=== PATIENT | male | born 1960 | race Caucasian/White ===

== ENCOUNTER 2025-10-11 23:18 | Emergency (ER) | payer BC, MEDICAID ==
[~2025-10-11] VITALS: Ht 188 cm; Wt 180.0 kg
[~2025-10-11 23:18] MED LIST: APIX5TAB3 PO; ATOR40TA PO; CARV-166 PO; DULO60CA65 PO; HYDR25TA90 PO; SACC250C PO; SERT25TA PO; TAMS-55 PO
[2025-10-11 23:49] LABS: MEAN PLATELET VOLUME 7.7 FL (7.4-10.4); RED CELL DISTRIBUTION WIDTH 17.9 % (11.5-14.5)
[2025-10-12 00:03] LABS: CREATININE 0.97 MG/DL (0.60-1.10); TOTAL CARBON DIOXIDE 28.5 MMOL/L (24-32); eCRCL 87 ML/MIN; eGFR 77 ML/MIN
[2025-10-12] MEDS ORDERED: LOSA50TA64 PO (00:15)
[2025-10-12] MEDS ORDERED: CARV6.2553 PO (00:17)
[2025-10-12] MEDS ORDERED: FURO40TA4 PO (00:17)
--- NOTE | 2025-10-12 00:40 | Physician Documentation ---
History of Present Illness ~ Chief Complaint: Urinary Symptoms Stated Complaint: DIFFICULTY URINATING M ALS Time Seen by MD: 00:30 OK to notify your PCP?: Yes Primary Medical Doctor: Em Sotelo MD Source: patient Mode of Arrival: EMS Exam Limitations: no limitations HPI 65 year old male presenting to the ED from home due to urinary symptoms. Patient states that he is supposed to be wearing a hess "but doesn't like it". Complaints of urinary urgency after voiding in the ED. + dysuria. Patient denies fevers/chills. Patient denies any other associated symptoms. Patient denies any other alleviating or exacerbating factors at this time. Medication Reconciliation Allergies: Coded Allergies: No Known Allergies (Unverified , 10/11/25) Scheduled Apixaban (Eliquis), 1 TAB PO Q12H, (Reported) Atorvastatin Calcium* (Lipitor*), 1 TAB PO DAILY, (Reported) Cephalexin*Monohydrate* (Keflex*), 1 CAP PO Q12H Duloxetine HCl (Duloxetine HCl), 1 CAP PO Q12H, (Reported) Furosemide (Furosemide), 1 TAB PO DAILY, (Reported) Losartan Potassium (Losartan Potassium), 1 TAB PO DAILY, (Reported) Sertraline Hcl* (Zoloft*), 2 TAB PO DAILY, (Reported) Tamsulosin Hcl* (Flomax*), 1 CAP PO DAILY, (Reported) Miscellaneous Medications Carvedilol (Carvedilol), 1 TAB PO, (Reported) Past Medical History Patient History: FH: diabetes mellitus FATHER, , Cause: Myocardial infarction MOTHER, , Age: 60 years and older FH: heart disease FATHER, , Cause: Myocardial infarction MOTHER, , Age: 60 years and older Alcohol Use: Other Drug Use: none Lives with: Spouse Lives In: Home Occupation: retired Review of Systems All Other Systems at this time: Reviewed and Negative ROS As stated above in the HPI, otherwise all systems are reviewed and negative. Physical Exam Vital Signs: RN Vital Signs have been reviewed: Yes, Temperature: 98.2, Source: Oral, Heart Rate: 59, Respiratory Rate: 16, BP: 172/136, Pulse Oximetry: 95, Weight: 180.000 Oxygen Flow Rate: 0 Pulse Oximetry Reflects: adequate oxygenation Physical Exam General: Patient is awake, alert, oriented x4 in no acute distress. Morbidly obese. Head: Normocephalic and atraumatic. Eyes: Conjunctival normal. EOMI. PERRL. ENT: Mucous membranes moist. Neck: Supple, trachea is midline. Chest: Clear to auscultation bilaterally without rales, rhonchi, or wheezes. There is no accessory muscle use or retractions. Cardiac: Bradycardic, without murmurs, gallops, or rubs. Abd: Soft, nondistended, nontender, with normoactive bowel sounds. No guarding, rebound, or rigidity. Extremities: Normal strength. Normal range of motion. No deformities or edema. Back: No midline spinal or CVA tenderness. Skin: Warm and dry with no significant rash appreciated. Neuro: Cranial nerves II-XII grossly intact. No focal neuro deficits. Progress Results/Orders Results/Orders Orders - EHMA ZALDIVAR MD Straight Cath For Urine Sample (10/11/25 23:27) Culture Blood (10/11/25 23:27) Cult Urine + [facility] (10/12/25 01:52) Production Support Developer (10/12/25 06:20) Cult Urine + [facility] [address] (10/12/25 06:23) Completed Orders - HEMA ZALDIVAR MD Cbc/Diff (10/11/25 23:27) CMP (10/11/25 23:27) Procalcitonin (10/11/25 23:27) Lacticsepsis (10/11/25 23:27) Acetaminophen 325mg Tablet (Tylenol Tabl (10/12/25 00:45) Ondansetron Disint. Tablet (Zofran Odt T (10/12/25 00:50) Cephalexin Capsule (Keflex Capsule) (10/12/25 00:50) * (A) Hess- Protocol * Q12H@07,19 (10/12/25 00:47) Lidocaine 2% Jelly 11ml Syr (Glydo-Lidoc (10/12/25 00:50) Ibuprofen Tablet (Motrin Tablet) (10/12/25 00:50) Ua W/Microscopic, Cult If Ind (10/12/25 00:10) Oxycodone Immed Release Tablet (Oxy Ir T (10/12/25 02:20) Lidocaine 2% Jelly 11ml Syr (Glydo-Lidoc (10/12/25 02:20) Ua W/Microscopic, Cult If Ind (10/12/25 05:30) Vital Signs 10/11/25 10/12/25 10/12/25 10/12/25 23:30 00:00 02:15 02:15 Temp 98.2 98.6 Pulse 59 66 Resp 16 20 22 B/P (MAP) 172/136 169/115 (133) Pulse Ox 95 96 O2 Flow Rate 0 10/12/25 10/12/25 10/12/25 04:20 09:24 10:41 Pulse 60 63 78 Resp 20 20 18 B/P (MAP) 160/99 (119) 144/116 (125) 158/118 Pulse Ox 96 94 98 O2 Flow Rate 0 Laboratory Tests Test 10/11/25 23:37 10/12/25 00:10 10/12/25 05:30 White Blood Count 8.5 Red Blood Count 4.98 Hemoglobin 14.0 Hematocrit 43.2 Mean Corpuscular Volume 86.9 Mean Corpuscular Hemoglobin 28.1 Mean Corpuscular Hemoglobin Concent 32.3 L Red Cell Distribution Width 17.9 H Platelet Count 247 Mean Platelet Volume 7.7 Neutrophils (%) (Auto) 72.1 Lymphocytes (%) (Auto) 15.1 L Monocytes (%) (Auto) 8.6 Eosinophils (%) (Auto) 3.3 Basophils (%) (Auto) 0.9 Neutrophils # (Auto) 6.1 Lymphocytes # (Auto) 1.3 Monocytes # (Auto) 0.7 Eosinophils # (Auto) 0.3 Basophils # (Auto) 0.1 CBC Comment Sodium Level 143 Potassium Level 3.8 Chloride Level 107 Carbon Dioxide Level 28.5 Anion Gap 8 Blood Urea Nitrogen 22 H Creatinine 0.97 Estimated GFR/1.73 m2 77 BUN/Creatinine Ratio 22.7 H Glucose Level 111 H Lactic Acid Level 1.1 Calcium Level 9.8 Total Bilirubin 0.6 Aspartate Amino Transf (AST/SGOT) 20 Alanine Aminotransferase (ALT/SGPT) 16 Alkaline Phosphatase 118 H Total Protein 6.6 Albumin 2.5 L Globulin 4.1 Albumin/Globulin Ratio 0.6 L Procalcitonin < 0.05 Chemistry Comments Urine Specimen Description Straight cath Other Urine Color Yellow Straw Urine Clarity Cloudy Clear Urine pH 7.5 6.0 Urine Specific [place] 1.020 <=1.005 Urine Protein 100 H Negative Urine Glucose (UA) Negative Negative Urine Ketones Trace H Negative Urine Occult Blood Moderate H Large H Urine Nitrite Positive H Negative Urine Bilirubin Negative Negative Urine Urobilinogen 2.0 H 0.2 Urine Leukocyte Esterase Moderate H Large H Urine RBC 3-10 0-2 Urine WBC 30-50 H 30-50 H Urine Squamous Epithelial Cells Few Few Urine Bacteria 4+ Few Urine Culture Indicated Indicated Indicated Volume Urine Centrifuged 10 ml 10 ml Urine Comment Urine WBC Clumps Few Urine Renal Cells Few Microbiology Date/Time Source Procedure Growth Status 10/12/25 06:23 Urine Other Urine Culture - Preliminary Culture received. Resulted 10/12/25 00:09 Blood Arm Right Blood Culture - Preliminary NEGATIVE (LESS THAN 24 HOURS) Resulted Medical Decision Making Additional information obtaine: old records Findings Patient presents to the emergency room with Hess catheter problems. Patient was urinary tract infection and giving the purulent clots that were sticking in his Hess catheter we opted to flush patient's bladder. Antibiotics initiated. ER precautions discussed. Labs reassuring Urinary Diff Dx:Considerations: Include: AAA, Aortic dissection, Appendicitis, Appendicitis train, Bowel obstruction, Bladder outlet obstruc., Cholelithiasis, Choleangitis, Cholecystitis, DJD, Epididymitis, Hepatitis, HNP, Impaction, Musculoskeletal pain, Pancreatitis, Postoperative Comp., Prostatitis, Pyelonephritis, Renal failure, Renal infarction, Strain, Urolithiasis, Urinary Obstruction, Urethritis, Urinary retention, UTI, Other Genital Diff Dx:Considerations: Include: Abscess, Balanitis, Balanoposthitis, Cellulitis, Epididymitis, Entrapment injury, Yamile's gangrene, Foreign body, Facture penis, Hydrocele, Inguinal hernia, Post-op Complication, Paraphimosis, Prostatitis, Priapism, Syphilis, Testicular torsion, Torsion-epididymis, Torsion-appendiceal, Urinary retention, Urethritis, Urethritis-chlamydial, Urethritis-gonococcal, UTI, Other Departure Time of Disposition: 01:41 Disposition: 01 HOME / SELF CARE / HOMELESS Impression: Primary Impression: Hess catheter problem Qualified Codes: T83.9XXA - Unspecified complication of genitourinary prosthetic device, implant and graft, initial encounter Additional Impression: Acute urinary tract infection Condition: Stable Discharge Instructions: Urinary Tract Infection, Adult, [id number] Additional Instructions: Take antibiotics as prescribed for full course. Please return to the ED if you develop any new or worsening symptoms. Referrals: NO PRIMARY CARE PROVIDER (PCP) Prescriptions Cephalexin*Monohydrate* (Keflex*) 500 Mg Capsule 1 CAP PO Q12H for 10 Days, #20 CAP Prov: HEMA ZALDIVAR MD 10/12/25 Education Educated: Patient Educated regarding: diagnosis, treatment, need for follow up Signature Scribe Signature: Scribed for Hema Zaldivar MD by Lacey Castillo . 10/12/25 00:54 Attestation: The note accurately reflects work and decisions made by me.Hema Zaldivar MD 10/12/25 21:24 HEMA ZALDIVAR MD Oct 12, 2025 00:40 LACEY GOEL Oct 12, 2025 00:52
[2025-10-12] MEDS: ondansetron 4mg rapidly disintigrating tab PO ONE (00:53)
[2025-10-12] MEDS: LidoCAINE 2% Topical Jelly 11mL syringe (UROJET) TOP ONE ×2 (01:12→02:26)
[2025-10-12 01:36] LABS: LEUKOCYTE ESTERASE ,URINE MODERATE (Neg); NITRITES, URINE POSITIVE (Neg); OCCULT BLOOD,URINE MODERATE (Neg)
[2025-10-12 01:37] LABS: UA COLLECTION TYPE STRAIGHT CATH
[2025-10-12] MEDS ORDERED: CEPH-585 PO (01:41)
[2025-10-12 01:52] LABS: SQUAMOUS EPITHELIAL CELL,UR FEW /LPF (FEW)
[2025-10-12 02:15] VITALS: TEMP 98.6
[2025-10-12] MEDS: oxyCODONE IR 5mg (immed. release) tablet PO ONE (02:26)
[2025-10-12 06:04] LABS: LEUKOCYTE ESTERASE ,URINE LARGE (Neg); NITRITES, URINE NEGATIVE (Neg); OCCULT BLOOD,URINE LARGE (Neg)
[2025-10-12 06:06] LABS: UA COLLECTION TYPE OTHER
[2025-10-12 06:22] LABS: SQUAMOUS EPITHELIAL CELL,UR FEW /LPF (FEW)
[2025-10-12 06:23] LABS: RENAL CELLS, URINE FEW /HPF; WBC CLUMPS,URINE FEW /HPF (NEGATIVE)
[2025-10-12 10:41] VITALS: BP 158/118; PULSE 78; RESP 18; O2SAT 98
== END 2025-10-12 10:42 | disposition home or self-care (01) ==
LOC: ER 23:18
DX: T83.9XXA Unspecified complication of genitourinary prosthetic device, implant and graft, initial encounter (principal); N39.0 Urinary tract infection, site not specified; Z79.899 Other long term (current) drug therapy; Y84.6 Urinary catheterization as the cause of abnormal reaction of the patient, or of later complication, without mention of misadventure at the time of the procedure
CPT/HCPCS: 36415; 51701; 80053; 81001; 83605; 84145; 85025; 87040; 87088; 99285; A4314; A4346; A4355; A4615; C1758